=== PATIENT | male | born 1950 | race African-American/Black ===

== ENCOUNTER 2020-04-13 17:29 | Inpatient (IN) ==
[2020-04-13] MEDS ORDERED: 0.9 % Sodium Chloride 500 ML IVC ONE (18:06)
[2020-04-13 18:33] LABS: Hematocrit 35.8 % (37.5-50.1); Hemoglobin 11.7 g/dL (12.9-16.9); Mean Corpuscular HGB Conc 32.7 g/dL (31.6-35.5); Mean Corpuscular Hemoglobin 27.6 pg (28.0-33.3); Mean Corpuscular Volume 84.4 fL (83.0-100.0); Mean Platelet Volume 10.1 fL (9.4-12.4); Platelet Count 193 K/mcL (140-400); Red Blood Count 4.24 M/mcL (4.19-5.50); Red Cell Distribution Width 13.8 % (11.5-14.5); White Blood Count 5.4 K/mcL (4.3-11.1)
[2020-04-13 19:07] LABS: BUN/Creatinine Ratio 25 (6-26); Blood Urea Nitrogen 19 mg/dL (8-23); Calcium 9.7 mg/dL (8.6-10.3); Carbon Dioxide 22 mEq/L (23-29); Chloride 105 mEq/L (98-107); Glucose 114 mg/dL (70-105); Osmolality,Calculated 289 (280-300); Potassium 3.7 mEq/L (3.5-5.1); Sodium 138 mEq/L (136-145); Troponin I < 0.03 ng/mL (< 0.04); eGFR For African Americans > 60 (> 60); eGFR For Non-African Americans > 60 (> 60)
[2020-04-13] MEDS ORDERED: *HR* Metoprolol 5 MG/5 ML VIAL IVP STA (19:48)
[2020-04-13] MEDS ORDERED: Naloxone 0.4 MG/ML INJ IVP PRN ×2 (21:38→21:43)
[2020-04-13] MEDS ORDERED: Dextrose Gel 15 GM/37.5 ML TUBE PO PRN ×2 (21:43)
[2020-04-13] MEDS ORDERED: D5% in Water 1,000 ML IVC PRN (21:43)
[2020-04-13] MEDS ORDERED: *HR* Dextrose 50 % in Water (Syg) 50 ML SYRINGE IVP PRN (21:43)
[2020-04-13 21:52] LABS: Magnesium 1.7 mg/dL (1.6-2.6)
[2020-04-13] MEDS: Insulin LISPRO 300 UNITS/3 ML VIAL SQ SCH (22:43)
[2020-04-14 02:07] LABS: Hematocrit 31.7 % (37.5-50.1); Hemoglobin 10.4 g/dL (12.9-16.9); Mean Corpuscular HGB Conc 32.8 g/dL (31.6-35.5); Mean Corpuscular Hemoglobin 27.9 pg (28.0-33.3); Mean Platelet Volume 10.4 fL (9.4-12.4); Platelet Count 171 K/mcL (140-400); Red Blood Count 3.73 M/mcL (4.19-5.50); Red Cell Distribution Width 13.9 % (11.5-14.5); White Blood Count 4.3 K/mcL (4.3-11.1)
[2020-04-14 02:23] LABS: BUN/Creatinine Ratio 25 (6-26); Blood Urea Nitrogen 17 mg/dL (8-23); Calcium 9.1 mg/dL (8.6-10.3); Carbon Dioxide 25 mEq/L (23-29); Chloride 107 mEq/L (98-107); Glucose 146 mg/dL (70-105); Osmolality,Calculated 292 (280-300); Potassium 3.5 mEq/L (3.5-5.1); Sodium 139 mEq/L (136-145); eGFR For African Americans > 60 (> 60); eGFR For Non-African Americans > 60 (> 60)
[2020-04-14 02:40] LABS: Thyroid Stimulating Hormone < 0.010 mcIU/mL (0.340-5.600); Troponin I 0.06 ng/mL (< 0.04)
[2020-04-14] MEDS: Insulin LISPRO 300 UNITS/3 ML VIAL SQ SCH ×4 (07:41→21:11)
[2020-04-14] MEDS ORDERED: Potassium Gluconate [Potassium] 99 MG PO SCH (09:00)
[2020-04-14] MEDS: Apixaban 5 MG TABLET PO SCH ×2 (09:26→21:10)
[2020-04-14] MEDS: Lactobacillus 1 EACH CAP.SPRINK PO SCH (09:26)
[2020-04-14] MEDS: Valsartan 160 MG TABLET PO SCH (09:26)
[2020-04-14] MEDS: carvediloL 6.25 MG TABLET PO SCH ×2 (09:27→16:30)
[2020-04-14] MEDS ORDERED: Furosemide 40 MG TABLET PO ONE (16:11)
[2020-04-14] MEDS ORDERED: *HR* Amiodarone 200 MG TABLET PO SCH (21:00)
[2020-04-14] MEDS ORDERED: Mag Hydrox/Al Hydrox/Simeth 30 ML UDC PO PRN (23:19)
[2020-04-15 06:50] LABS: Hematocrit 33.9 % (37.5-50.1); Mean Corpuscular HGB Conc 32.4 g/dL (31.6-35.5); Mean Corpuscular Hemoglobin 27.6 pg (28.0-33.3); Platelet Count 175 K/mcL (140-400); Red Blood Count 3.99 M/mcL (4.19-5.50); Red Cell Distribution Width 13.6 % (11.5-14.5); White Blood Count 3.7 K/mcL (4.3-11.1)
[2020-04-15 07:11] LABS: BUN/Creatinine Ratio 20 (6-26); Blood Urea Nitrogen 15 mg/dL (8-23); Calcium 9.3 mg/dL (8.6-10.3); Carbon Dioxide 27 mEq/L (23-29); Chloride 107 mEq/L (98-107); Glucose 121 mg/dL (70-105); Osmolality,Calculated 288 (280-300); Potassium 3.8 mEq/L (3.5-5.1); Sodium 138 mEq/L (136-145); eGFR For African Americans > 60 (> 60); eGFR For Non-African Americans > 60 (> 60)
[2020-04-15] MEDS: Insulin LISPRO 300 UNITS/3 ML VIAL SQ SCH ×4 (08:47→20:13)
[2020-04-15] MEDS: Lactobacillus 1 EACH CAP.SPRINK PO SCH (09:41)
[2020-04-15] MEDS: Apixaban 5 MG TABLET PO SCH ×2 (09:41→20:17)
[2020-04-15] MEDS: Valsartan 160 MG TABLET PO SCH (09:41)
[2020-04-15] MEDS: carvediloL 6.25 MG TABLET PO SCH ×2 (09:41→16:40)
[2020-04-16] MEDS: Insulin LISPRO 300 UNITS/3 ML VIAL SQ SCH ×4 (07:45→20:15)
[2020-04-16] MEDS: Apixaban 5 MG TABLET PO SCH ×2 (09:28→20:03)
[2020-04-16] MEDS: carvediloL 6.25 MG TABLET PO SCH ×2 (09:28→17:14)
[2020-04-16] MEDS: Lactobacillus 1 EACH CAP.SPRINK PO SCH (09:28)
[2020-04-16] MEDS: Valsartan 160 MG TABLET PO SCH (09:28)
[2020-04-17 05:38] LABS: Basophils % 0.4 %; Eosinophils # 0.3 K/mcL (0.0-0.6); Eosinophils % 6.1 %; Hematocrit 35.4 % (37.5-50.1); Hemoglobin 11.2 g/dL (12.9-16.9); Immature Granulocytes % 0.2 % (0-4); Lymphocytes # 1.4 K/mcL (0.6-4.6); Lymphocytes % 30.1 %; Mean Corpuscular HGB Conc 31.6 g/dL (31.6-35.5); Mean Corpuscular Hemoglobin 26.9 pg (28.0-33.3); Mean Corpuscular Volume 84.9 fL (83.0-100.0); Mean Platelet Volume 10.3 fL (9.4-12.4); Monocytes # 0.8 K/mcL (0.0-1.3); Monocytes % 17.4 %; Neutrophils # 2.2 K/mcL (1.6-8.9); Platelet Count 190 K/mcL (140-400); Red Blood Count 4.17 M/mcL (4.19-5.50); Red Cell Distribution Width 13.4 % (11.5-14.5); Segmented Neutrophils % 45.8 %; White Blood Count 4.8 K/mcL (4.3-11.1)
[2020-04-17 05:50] LABS: BUN/Creatinine Ratio 26 (6-26); Blood Urea Nitrogen 20 mg/dL (8-23); Calcium 9.5 mg/dL (8.6-10.3); Carbon Dioxide 28 mEq/L (23-29); Chloride 105 mEq/L (98-107); Glucose 120 mg/dL (70-105); Osmolality,Calculated 290 (280-300); Potassium 4.1 mEq/L (3.5-5.1); Sodium 138 mEq/L (136-145); eGFR For African Americans > 60 (> 60); eGFR For Non-African Americans > 60 (> 60)
[2020-04-17] MEDS: Insulin LISPRO 300 UNITS/3 ML VIAL SQ SCH ×4 (08:26→19:54)
[2020-04-17] MEDS: Valsartan 160 MG TABLET PO SCH (08:30)
[2020-04-17] MEDS: carvediloL 6.25 MG TABLET PO SCH ×2 (08:31→16:42)
[2020-04-17] MEDS: Lactobacillus 1 EACH CAP.SPRINK PO SCH (08:31)
[2020-04-17] MEDS: Apixaban 5 MG TABLET PO SCH ×2 (08:31→19:58)
[2020-04-17] MEDS ORDERED: Furosemide 20 MG TABLET PO PRN (10:32)
[2020-04-17] MEDS: Sennosides/Docusate Sodium TABLET PO SCH (20:05)
[2020-04-18 06:33] LABS: Basophils % 0.8 %; Eosinophils # 0.3 K/mcL (0.0-0.6); Eosinophils % 6.8 %; Hematocrit 35.5 % (37.5-50.1); Hemoglobin 11.4 g/dL (12.9-16.9); Immature Granulocytes % 0.3 % (0-4); Lymphocytes # 1.4 K/mcL (0.6-4.6); Lymphocytes % 36.1 %; Mean Corpuscular HGB Conc 32.1 g/dL (31.6-35.5); Mean Corpuscular Volume 84.1 fL (83.0-100.0); Mean Platelet Volume 10.2 fL (9.4-12.4); Monocytes # 0.6 K/mcL (0.0-1.3); Monocytes % 15.8 %; Neutrophils # 1.6 K/mcL (1.6-8.9); Platelet Count 203 K/mcL (140-400); Red Blood Count 4.22 M/mcL (4.19-5.50); Red Cell Distribution Width 13.4 % (11.5-14.5); Segmented Neutrophils % 40.2 %
[2020-04-18 06:52] LABS: BUN/Creatinine Ratio 25 (6-26); Blood Urea Nitrogen 18 mg/dL (8-23); Calcium 9.6 mg/dL (8.6-10.3); Carbon Dioxide 26 mEq/L (23-29); Chloride 105 mEq/L (98-107); Glucose 119 mg/dL (70-105); Osmolality,Calculated 287 (280-300); Potassium 3.9 mEq/L (3.5-5.1); Sodium 137 mEq/L (136-145); eGFR For African Americans > 60 (> 60); eGFR For Non-African Americans > 60 (> 60)
[2020-04-18 06:53] VITALS: BP 104/67
[2020-04-18] MEDS: Insulin LISPRO 300 UNITS/3 ML VIAL SQ SCH (07:34)
[2020-04-18] MEDS: Apixaban 5 MG TABLET PO SCH (08:27)
[2020-04-18] MEDS: Lactobacillus 1 EACH CAP.SPRINK PO SCH (08:27)
[2020-04-18] MEDS: Valsartan 160 MG TABLET PO SCH (08:28)
[2020-04-18] MEDS: Sennosides/Docusate Sodium TABLET PO SCH (08:29)
[2020-04-18] MEDS: carvediloL 6.25 MG TABLET PO SCH (08:29)
== END 2020-04-18 11:17 | disposition home or self-care (01) | DRG 309 ==
LOC: EMEROOARM 17:29 → 3BNU 17:29 → SUATTDRO 04-14 13:01
PROVIDERS: ADMIT Internal Medicine; ATTEND Internal Medicine